=== PATIENT | male | born 1960 | race Caucasian/White ===

== ENCOUNTER 2025-05-26 09:46 | Outpatient (AMB) | payer BC, SELFPAY ==
--- NOTE | 2025-05-26 10:38 | A.OFFVIS_ITS ---
Intake Visit Reasons: after testing HPI Comments Details: He has a six-month history of a tremor in the right hand that is primarily noted when he is walking and gets quite prominent.? He can inhibit the tremor by?pressing his fingers against each other.? It does not affect his functional ability.? He does not notice it in bed or at rest or when he is doing things with the hand.? His father had some tremor when he was in his 80s. One near fall recently. He also complains of dizziness for the last 6 months described as a sense of loss of balance, as if he is on a boat and sometimes he feels the ground is uneven.? He has no vertigo and no presyncopal sensation.? This dizziness only occurs when he is standing or walking.? He has constant tinnitus in both years ever since a bout of meningitis 15 years ago for which he was admitted to [facility] for 15 days.? He had multiple lumbar punctures and MRIs at that time. He has multiple medical problems including a 15 year history of diabetes, hypertension, hyperlipidemia, congestive heart failure, obstructive sleep apnea on CPAP and a history of extensive substance abuse including alcohol and cocaine, who has been clean for the last 12 years. 05/07/25 MRI brain shows severe chronic cerebral microvacsular disease. 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 with chronic distal neuropathic changes on EMG [facility] Medical History (Updated 05/26/25 @ 10:54 by Marta Bashir MD) Substance abuse Alcohol abuse SEVTA (obstructive sleep apnea) CHF (congestive heart failure) High blood cholesterol Hypertension Diabetes mellitus Surgical History (Updated 05/25/25 @ 16:26 by Afia Mckeon MA) History of bariatric surgery Social History (Updated 05/25/25 @ 16:27 by Afia Mckeon MA) Alcohol intake: current Patient Tobacco Use Status: Former Tobacco user Use of substances other than those prescribed or required for medical reasons: Yes Substance Use Type: Crack/Cocaine Physical Exam Neuro Other: Neurological: Abnormal neurological findings:??Truncal ataxia, areflexia, distal sensory loss in hands and feet. Coarse Parkinsonian tremor in right hand only when walking.?Mental Status:??alert and oriented X 3,?Normal attention, orientation, memory and affect.?Cranial Nerves:??Pupils are equal, round and reactive to light. Fundoscopy shows normal disc bilaterally. External occular muscles are intact. Visual gamble are full, no ptosis. Face is symmetrical, no facial weakness or droop. Facial sensations are normal. Tongue protrudes in midline. Palate elevates symmetrically. Shoulder shrugging is normal..?Motor Examin ation:??Normal muscle tone, bulk and strength,?No atrophy or fasciculations,?No drift of the extended upper extremities,?Deep tendon reflexes are 2+?,?Plantars are flexor?.?Motor Strength:?Proximal Muscles (out of 5):5Distal Muscles (out of 5):5Neck Flexors (out of 5):5Neck Extensors (out of 5):5Deltoid (out of 5):5 Biceps (out of 5):5Triceps (out of 5):5Serratus Anterior (out of 5):5Wrist Extensors (out of 5):5APB (out of 5):5Finger Spread (out of 5):5Ileopsoas (out of 5):5Quadriceps (out of 5):5Hamstrings (out of 5):5Tibialis Anterior (out of 5):5Peronei (out of 5):5EDB (out of 5):5Gastrocnemius (out of 5):5Straight Leg Raising:??90 degrees.?Sensory Exam:??Distal sensory loss to PP. ?vibration and joint-position sensations?,?Rhomberg sign is present.?Coordination:??no ataxia,?no titubation,?abhyvq-[id number]-eyfx, vlxn-sgau-hcan test and rapid alternating movements were normal.?Gait Exam:??Within normal limits.?Cerebellar Signs:??[id number]-qvrq and ypyn-ua-fayd is normal,?no dysdiadochokinesia?.?Extrapyramidal System:??No tremor, rigidity with normal facial expressions,?No bradykinesia, no bradyphrenia. Normal arm swing and posture. No propulsion or retropulsion.?Speech:??Normal,?no dysphasia or dysarthria..? Mini Mental Status Exam: Level of Consciousness:??Alert.?Orientation:??Knows correct year, month, date, day and season,?Knows correct city, county and state. Knows correct location and floor.?Registration:??Able to register 3 objects.?Attention:??Serial 7's performed accurately.?Recall:??Able to recall 3 out of 3 objects.?Language:??Normal spontaneous speech, fluency, repetition,naming, comprehension, reading and writing.?Total Score:??30/30.? General Examination: GENERAL APPEARANCE:??normal,?in no acute distress.?HEAD:??normocephalic,?atraumatic.?EYES:??sclera non- icteric,?conjunctiva clear.?EARS:??auditory canal clear,?tympanic membrane intact, clear.?NOSE:??no lesions.?ORAL CAVITY:??gums normal,?mucosa moist,?no lesions.?THROAT:??clear.?NECK/THYROID:??no cervical lymphadenopathy,?thyroid normal,?neck supple, full range of motion,?no carotid bruit.?SKIN:??no rashes,?no significant birthmarks.?HEART:??S1, S2 normal,?no murmurs.?LUNGS:??clear anteriorly and posteriorly.?CHEST:??no gross rib deformity,?clear to auscultation.?BACK:??normal exam of spine.?EXTREMITIES:??no edema.?PERIPHERAL PULSES:??normal.?PSYCH:??alert, oriented,?cognitive function intact,?cooperative with exam.? Assessment & Plan Assessment & Plan (1) Peripheral neuropathy: Code(s): G62.9 - Polyneuropathy, unspecified Category: Medical (2) Cerebral microvascular disease: Code(s): I67.89 - Other cerebrovascular disease Category: Medical (3) SVETA on CPAP: Code(s): G47.33 - Obstructive sleep apnea (adult) (pediatric) Category: Medical Plan Control of Diabetes. B complex B 50 once a day. Exercise and walking for gait and balance Coding Level of Care Code Est Pt Level 4 (30076) Diagnoses Peripheral neuropathy G62.9 Cerebral microvascular disease I67.89 SVETA on CPAP G47.33
--- OUTSIDE RECORDS SUMMARY | 2025-05-26 10:38 | XMS_ITS | Clinical Summary ---
Author Organization 175 [facility] Address [address] [place] [address] Phone Care Team Providers Care At Risk Specialist Name Role Phone Shyanne Zambrano MD Primary Care Prov ider Allergies No known active allergies Medications lamoTRIgine (LaMICtal) 200 mg tablet Take 1 tablet (200 mg total) by mouth. 023 Active cholecalciferol (VITAMIN D-3) 50 mcg (2,000 unit) capsule Take 50 mcg by mouth. Active aspirin 81 mg chewable tablet Chew 1 tablet (81 mg total) 1 (one) time each day. Active naltrexone (DEPADE) 50 mg tablet Take 1 tablet (50 mg total) by mouth 1 (one) time each day with dinner. 023 Active omega 4-mcb-wye-fish oil (Fish OiL) 1,200 (144-216) mg capsule Take 1,200 mg by mouth. Active hydrOXYzine HCL (ATARAX) 25 mg tablet Take 1 tablet (25 mg total) by mouth. 023 Active buPROPion XL (WELLBUTRIN XL) 300 mg 24 hr tablet Take 1 tablet (300 mg total) by mouth 1 (one) time each day in the morning. 023 Active MULTIVITAMIN ORAL Take 1 tablet by mouth 1 (one) time each day. Active blood-glucose meter,[facility] See administration instructions. 021 Active busPIRone (BUSPAR) 5 mg tablet Take 1 Tablet by mouth 2 Times Daily. Active metoprolol succinate (TOPROL-XL) 100 mg 24 hr tablet Take 1 tablet (100 mg total) by mouth 1 (one) time each day. 90 tablet 1 Active DULoxetine (CYMBALTA) [address] capsule TAKE 1 CAPSULE BY MOUTH EVERY DAY 90 capsule 1 Active Dexcom G7 Sensor deviceIndicatio ns:Type 2 diabetes mellitus with other diabetic neurological complication ([facility] V24, [facility] V28) APPLY DIRECTED 3 each 5 Active fluticasone propionate (FLONASE) 50 mcg/actuation nasal spray Administer 1 spray into each nostril 1 (one) time each day. Active cyanocobalamin (VITAMIN B-12) 1,000 mcg tablet TAKE 1 TABLET BY MOUTH EVERY DAY 90 tablet Active lisinopriL (PRINIVIL,ZESTR IL) 10 mg tablet Take 1 tablet (10 mg total) by mouth 1 (one) time each day. 90 each 3 025 2025 Active meclizine (ANTIVERT) 25 mg tablet Take 1 tablet (25 mg total) by mouth 2 (two) times a day if needed for dizziness for up to 60 doses. 60 tablet Active amLODIPine (NORVASC) 5 mg tablet TAKE 1 TABLET BY MOUTH EVERY DAY 90 tablet 1 Active blood sugar diagnostic (OneTouch Verio test strips) test stripIndication s:Type 2 diabetes mellitus with other diabetic neurological complication ([facility] V24, [facility] V28) APPLY 1 STRIP TOPICALLY 2 TIMES DAILY. 200 strip 1 Active tirzepatide, weight loss, (Zepbound) 10 mg/0.5 mL injectionIndica tions:Over weight Inject 0.5 mL (10 mg total) under the skin every 7 (seven) days. 2 mL 1 025 2024 Active simvastatin (ZOCOR) 20 mg tablet TAKE 1 TABLET BY MOUTH EVERYDAY AT BEDTIME 90 tablet 2 Active simvastatin (ZOCOR) 20 mg tablet Take 1 tablet (20 mg total) by mouth at bedtime. 024 2024 Discontinued Active Problems Problem Noted Date Diagnosed Date Hx of colonic polyps 01/17/2024 History of cardiomyopathy in adulthood 4 Overview (01/17/2024): Coy Low MD 08/24/2020 Nonobstructive EF 35% in 2009, 55% in 2015, .55% in 2019 (cardiac cath- nonobstructive cad) Hx of colonoscopy 01/17/2024 Overview (01/17/2024): Hx of difficult colonoscopy 09/11/2018 Very difficult hepatic flexure. Needs adult colonoscope Personal history of colonic polyps 01/17/2024 Overview (08/26/2024): 4mm rectal polyp removed by biopsy procedure at colonoscopy 12/16/2009 Tubular adenoma Next colonoscopy indicated in 5 years IMO Regulatory Update 08/26/24 Bariatric surgery status 01/17/2024 Overview (01/17/2024): 08/16/2023 Ascending aorta dilation (CMS/HCC V24) 3 Overview (01/17/2024): Last Assessment & Plan: Given the fact that the patient had some discomfort radiating through to his back, will obtain a CT chest to gain an accurate measurement of his aorta size. His aorta size has not been changing dramatically on serial echocardiograms. Diverticulosis of colon 03/31/2022 Overview (01/17/2024): CN, 03/22/2022, Other cardiomyopathies (CMS/HCC V24, CMS/HCC V28 ) 07/08/2021 Overview (01/17/2024): Last Assessment & Plan: The patient has had recovery of his LVEF on medical therapy and with cessation of alcohol and drugs. He is commended for his efforts! He appears euvolemic on exam today. Continue ongoing medical therapy with lisinopril, metoprolol, amlodipine. LVH (left ventricular hypertrophy) 07/08/2021 Diabetes mellitus with cataract ([facility] V24, [facility] V28) 01/26/2021 Overview (01/17/2024): Cataract Nuclear Sclerosis bilateral. Obesity (BMI 30-39.9) 01/03/2021 Headache 07/08/2013 Overview (01/17/2024): Last Assessment & Plan: Take Fioricet for severe headaches, not daily. Controlled substance agreement. Coronary artery disease 03/21/2013 Overview (01/17/2024): Nonobstructive CAD in 2006 when presented with CHF. Nuclear stress test 12/31/2012; cath 03/2014 showed 30% and 40% stenotic lesions in LAD, minimal luminal irregularities elsewhere. Cardiac cath 2018 - nonobstructive CAD, EF 55% DM (diabetes mellitus), type 2 with neurological complications ([facility] V24, [facility] V28) 03/21/2013 Overview (01/17/2024): Podiatry note 01/14/2013/ Dr. Barron. Last Assessment & Plan: Increase Cymbalta to 60 mg daily for neuropathy. Diabetes labs today Assessment & Plan (02/19/2025 11:07 AM EDT): Assessment & Plan (12/16/2024 9:41 AM EST): Good control of diabetes, not on medications after bariatric surgery. Patient will continue with yearly Podiatric and Ophthomologic evaluation. Last A1c within normal limits. Patient will follow up in 6 months. Will check an A1C, CMP, lipid panel before his next visit. Orders: Comprehensive metabolic panel; Future Hemoglobin A1c; Future Lipid panel with reflex to direct LDL; Future Peripheral neuropathy 03/21/2013 Overview (01/17/2024): Follows with [facility] 3 mth basis. Major depressive disorder, recurrent (CMS/HCC V2 4) 01/16/2011 Assessment & Plan (02/19/2025 11:07 AM EDT): Care is ongoing Assessment & Plan (12/16/2024 9:41 AM EST): In remission, following with . Currently taking duloxetine, bupropion, buspirone. Essential hypertension 09/27/2009 Overview (01/17/2024): Last Assessment & Plan: Patient blood pressure is somewhat robust in office today but better controlled on chart review. Continue his current treatment plan with beta-linus, NOE inhibitor and calcium channel linus. Though we are interrupting his beta-linus for the purpose of his stress test, we can follow his blood pressure at his testing and adjust medical therapy at that point if necessary. Assessment & Plan (02/19/2025 11:07 AM EDT): Assessment & Plan (12/16/2024 9:41 AM EST): The patient's antihypertensive regimen is based on their underlying medical issues. At the time of this visit, the blood pressure is well controlled on lisinopril, metoprolol, and amlodipine. The patient is instructed to follow a low sodium diet and to follow up in 4 months. Hypercholesteremia 04/23/2009 Overview (01/17/2024): Last Assessment & Plan: LDL well controlled on current dose statin given concurrent use with calcium channel linus. Continue Assessment & Plan (02/19/2025 11:07 AM EDT): Assessment & Plan (12/16/2024 9:41 AM EST): Given the patients cardiac risk profile, the patient requires an LDL cholesterol of less than 70. We will continue simvastatin 20 mg a day. I have instructed the patient on the principles of a low cholesterol diet and the importance of regular exercise. Insomnia 04/03/2007 Obstructive sleep apnea hypopnea, severe 007 Overview (01/17/2024): to 08/11/2019. CPAP@ 14-20/Average 14.4/Max 14.8. 100% compliant with using the machine for >4 hours/day. Average use is 8.5 hours a night with AHI 4.5. Encounters Date Type Department Care Team Description 05/25/2025 Telephone Adult Medicine [address] [phone] Shyanne Zambrano MD Referral (Neurology Referral) 05/18/2025 Telephone Adult Medicine [address] [address] Shyanne Zambrano MD Referral (Ophthalmology Insurance Referral) 05/05/[address] [phone] Celine Rivera MA DME-cpap supplies 04/29/2025 9:45 AM EDT Office Visit Pulmon[address] [place] [phone] Fabienne Méndez NP Obstructive sleep apnea hypopnea, severe (Primary Dx); Insomnia, unspecified type; Essential hypertension; Recurrent major depressive disorder, in full remission (CMS/[facility] V24); Overweight (BMI 25.0-29.9) 04/21/2025 8:00 AM EDT Office Visit Bariatric Surgery - [place] [facility] [address] [place] [phone] Christian Ferreira MD Over weight (Primary Dx) 04/21/2025 Telephone Adult Medicine [address] [phone] Shyanne Zambrano MD Referral from Last 3 Months Immunizations Name Administration Dates Next Due Influenza Quadravalent, MDCK , 0.5ml, preservative free (Flucelvax) 6mo and older 12/11/2023,09/25/2022,09/20/2021,09/29,09/04/2018 Influenza Quadravalent, MDCK , 0.5ml, with preservative (Flucelvax) 6mo and older 08/21/2021,11/08/2017,11/08/2016 Influenza trivalent, with pr eservative (Fluzone; Afluria) 6mo and older 08/19/2020,10/24/2016,09/28/2015,09/02,08/22/2012,10/26/2011,10/17/2010 ,09/27/2009 Influenza, live, intranasal, trivalent (FluMist) 2yo to less than 50yo 08/11/2024 [employer] SARS-CoV-2 COVID-19, mRNA, LNP-S, preservative free 11/01/2021 Pneumococcal polysaccharide 23 valent (Pneumovax 23) 2yo and older 09/28/2015 Tdap Tetanus diptheria acell ular pertussis (Boostrix; Adacel) 7yo and older 04/10/2024,09/02/2013 Zoster recombinant (Shingrix ) 19yo and older 12/25/2020,10/28/2020 Surgical History Surgery Date Site/Laterality Comments COLONOSCOPY 03/29/2015 PROCEDURE: HISTORICAL COLONOSCOPY; COMMENT: 8 mm polyp at 25 cm: Tubular adenoma with focal high-grade dysplasia. COLONOSCOPY 12/16/2009 PROCEDURE: HISTORICAL COLONOSCOPY; COMMENT: small rectal polyp: Tubular adenoma. COLONOSCOPY 09/11/2018 PROCEDURE: HISTORICAL COLONOSCOPY; COMMENT: 14 mm sessile transverse colon polyp: Tubular adenoma. CARDIAC CATHETERIZATION 03/31/2014 PROCEDURE: HISTORICAL CARDIAC CATH CARDIAC CATHETERIZATION 01/24/2007 PROCEDURE: HISTORICAL CARDIAC CATH COLONOSCOPY 03/22/2022 PROCEDURE: HISTORICAL COLONOSCOPY; COMMENT: Repeat 5 years Medical History Medical History Date Comments Insomnia, unspecified 04/03/2007 DX:Insomni a, unspecified Hypertension 09/27/2009 DX:Hypertension Personal history of colonic polyps 12/16/2009 DX:Personal history of colonic polyps; COMMENT: 4-mm rectal polyp removed by biopsy procedure at colonoscopy 12/16/2009: Tubular adenoma. Next colonoscopy indicated in 5 years. Congestive heart failure (CM S/HCC V24, [facility] V28) 01/28/2007 DX:Congestive heart failure (HCC); COMMENT: IMO update History of colonoscopy 09/11/2018 DX:Histor y of colonoscopy; COMMENT: 09/11/2018: Very difficult hepatic flexure. Needs adult colonoscope. Non-ischemic cardiomyopathy (CMS/HCC V24, [facility] V28) 12/11/2008 DX:Non-ischemic cardiomyopat hy (HCC); COMMENT: EF 35% in 2008, 55% in 2014. 55% in 2018 (cardiac cath - nonobstructive CAD) DM (diabetes mellitus), type 2 with neurological complications ([facility] V24, [facility] V28) 03/21/2013 DX:DM (diabetes mellitus), t ype 2 with neurological complications ([facility]); COMMENT: Podiatry note 01/14/2013/ Dr. Barron. Peripheral neuropathy 03/21/2013 DX:Periphe ral neuropathy; COMMENT: Podiatry note 2012 Coronary artery disease 03/21/2013 DX:Coron remigio artery disease; COMMENT: Nonobstructive CAD in 2006 when presented with CHF. Nuclear stress test 12/31/2012; cath 03/2014 showed 30% and 40% stenotic lesions in LAD, minimal luminal irregularities elsewhere. Headache 07/08/2013 DX:Headache History of colonic polyps 12/16/2009 DX:His tory of colonic polyps Hypercholesteremia 04/23/2009 DX:Hyperchole steremia Major depressive disorder, r ecurrent ([facility] V24) 01/16/2011 DX:Major depressive disorder , recurrent (HCC) Obstructive sleep apnea hypo pnea, severe 01/28/2007 DX:Obstructive sleep apnea hypopnea, severe; COMMENT: to 08/11/2019. CPAP@ 14-20/Average 14.4/Max 14.8. 100% compliant with using the machine for >4 hours/day. Average use is 8.5 hours a night with AHI 4.5. Occipital neuralgia 07/25/2013 DX:Occipital neuralgia; COMMENT: S/p injection at Neuro Diabetes mellitus with catar act ([facility] V24, [facility] V28) 01/26/2021 DX:Diabetes mellitus with c ataract ([facility]); COMMENT: Cataract Nuclear Sclerosis bilateral. Insomnia 04/03/2007 DX:Insomnia Diverticulosis of colon 03/31/2022 DX:Diver ticulosis of colon; COMMENT: CN, 03/22/2022, Family History Medical History Relation Name Comments No Known Problems Aunt No Known Problems Brother Cataracts Father Brain Tumor No Known Problems Maternal Grandfather No Known Problems Maternal Grandmother Diabetes Mother CAD No Known Problems Other No Known Problems Paternal Grandfather No Known Problems Paternal Grandmother Colon cancer Sister No Known Problems Uncle Blindness Neg Hx Glaucoma Neg Hx Macular degeneration Neg Hx Strabismus Neg Hx Relation Name Status Comments Aunt Brother Father Alive brain tumor mi Maternal Grandfather Maternal Grandmother Mother Alive dm htn complica tions Other Paternal Grandfather Paternal Grandmother Sister Alive ??? Uncle Social History Tobacco Use Types Packs/Day Years Used Date Smoking Tobacco: Former Cigarettes 0.5 40 0 1972 - 08/18/2012 Smokeless Tobacco: Never Tobacco Cessation:Counseling Given: Not Answered Alcohol Use Standard Drinks/Week Comments No 0 (1 standard drink = 0.6 oz pur e alcohol) Housing Instability Answer Date Recorde d Are you worried that in the next 2 months you may not have stable housing? No 12/16/2024 Food Access & Nutrition Answer Date Rec orded Do you have access to a vari ety of food including fruits and vegetables? Yes 12/16/2024 Access to Healthcare Answer Date Record ed Within the last 3 months, francisco briceno many times did you visit the emergency department for your medical care? 0 12/16/2024 Health Literacy Answer Date Recorded How often do you need to hav e someone help you when you read instructions, pamphlets, or other written material from your doctor or pharmacy? Never 12/16/2024 Caregiver: How often do you need to have someone help you when you read instructions, pamphlets, or other written material from your doctor or pharmacy? Not on file 12/16/2024 Financial Risk Answer Date Recorded How hard is it for you to pa y for the very basics like food, housing, medical care, and air conditioning / heating? Somewhat hard 12/16/2024 Transportation Answer Date Recorded Has the lack of transportati on kept you from meetings, work, or from getting things needed for daily living? No Has the lack of transportati on kept you from medical appointments or from getting medications? No 12/16/2024 Social Isolation Answer Date Recorded How often do you feel lonely or isolated from th ose around you? Never 12/16/2024 Food Risk Answer Date Recorded Within the past 12 months we worried whether our food would run out before we got money to buy more. Never true 12/16/2024 Within the past 12 months th e food we bought just didn't last and we didn't have money to get more. Never true 12/16/2024 Dependent Care Answer Date Recorded Do you need help finding or paying for care for your loved ones. For example, child day care center worker or elderly care for an older adult? No 12/16/2024 Education Answer Date Recorded Do you think completing more education or training, like finishing a GED, going to college, or learning a trade, would be helpful for you? No 12/16/2024 Employment and Income Answer Date Recor ded During the last four weeks, have you been actively looking for work? No 12/16/2024 Living Situation Answer Date Recorded What is your living situation? 0 12/16/2024 Sex and Gender Information Value Date Recorded Sex Assigned at Male 09/30/2024 7:49 AM EST Legal Sex Male 3:52 PM EST Gender Identity Male 09/30/2024 7:49 AM EST Sexual Orientation Straight 09/30/2024 7: 49 AM EST Obstetrics History Last Filed Vital Signs Vital Sign Reading Time Taken Comments Blood Pressure 112/64 04/29/2025 9:09 AM EDT Pulse 55 04/29/2025 9:09 AM EDT Temperature 36.4 C (97.5 F) 04/29/2025 9:09 AM EDT Respiratory Rate 14 04/29/2025 9:09 AM EDT Oxygen Saturation 97% 04/29/2025 9:09 AM EDT Inhaled Oxygen Concentration - - Weight 93.9 kg (207 lb) 04/29/2025 9:09 AM EDT Height 182.9 cm (6') 04/29/2025 9:09 AM EDT Body Mass Index 28.07 04/29/2025 9:09 AM EDT Plan of Treatment Upcoming Encounters Date Type Department Care Team (Late st Contact Info) Description 06/15/2025 9:45 AM EDT Office Visit Adult Medicine [address] [phone] Shyanne Zambrano MD [address] [place] [address] 06/30/2025 9:00 AM EDT Office Visit [address] [phone] Joana Clark PA [address] [place] [address] 2025 8:30 AM EDT Office Visit Pulmonolgy - [place] [address] [phone] Fabienne Méndez NP [address] [address] 10/07/2025 8:00 AM EST Office Visit Endocrinology [address] [phone] Beronica Meeks PA [address] [place] [address] 10/27/2025 8:45 AM EST Office Visit Bariatric Surgery - [place] [address] [phone] Christian Ferreira MD [address] [address] Health Maintenance Due Date Last Done Comments Pneumococcal Vaccine: 50+ Years (2 of 2 - PCV) 09/28/2016 09/28/2015 Pneumococcal Vaccine: Pediatrics (0 to 5 Years) and At-Risk Patients (6 to 64 Years) (2 of 2 - PCV) 09/28/2016 09/28/2015 Lung Cancer Screening (Low Dose CT) 11/02/2022 Medicare Annual Wellness Visit 11/02/2022 COVID-19 Vaccine ( - 2023- season) 2024 11/01/2021, 03/03/2021, 02/10/2021 Diabetes: Annual Urine Albumin-Creatinine Ratio (uACR) 12/11/2024 12/11/2023 Diabetes: Annual Retina Eye Exam 06/10/2025 06/10/2024 Diabetes: Blood Sugar Control Test (HGBA1C) 06/15/2025 12/16/2024, 04/10/2024, 04/10/2024 Influenza Vaccine (#1) 2025 , 12/11/2023, 09/25/2022, Additional history exists Diabetes: Annual Foot Exam 08/11/2025 08/11/2024 Diabetes: Annual GFR (Glomerular Filtration Rate) 12/16/2025 12/16/2024, 08/11/2024, 08/11/2024, Additional history exists Falls Risk Assessment 12/16/2025 12/16/2024 Hypertension/CHF/CAD Annual BMP Blood Test 12/16/2025 12/16/2024, 08/11/2024, 08/11/2024, Additional history exists Social Influencers of Health Screening 12/16/2025 12/16/2024 Depression Screening 01/12/2026 01/12/2025, 12/16/19 25 Colorectal Cancer Screening: Colonoscopy 03/02/2027 03/02/2022 Cholesterol Screening (Lipid Panel) 12/16/2029 12/16/2024, 12/11/2023 DTaP,Tdap,and Td Vaccines (3 - Td or Tdap) 04/10/2034 04/10/2024, 09/02/2013 RSV Immunization Adult Patients (1 - 1-dose 75+ series) 2034 Abdominal Aortic Aneurysm (AAA) Screen Completed 07/30/2009 Hepatitis C Screening Completed 04/27/2014 Zoster Vaccines Completed 12/25/2020, 10/28/2020 HIB Vaccines Aged Out No longer eligi ble based on patient's age to complete this topic HPV Vaccines Aged Out No longer eligi ble based on patient's age to complete this topic Hepatitis A Vaccines Aged Out No long er eligible based on patient's age to complete this topic Hepatitis B Vaccines Aged Out No long er eligible based on patient's age to complete this topic IPV Vaccines Aged Out No longer eligi ble based on patient's age to complete this topic MMR Vaccines Aged Out No longer eligi ble based on patient's age to complete this topic Meningococcal ACWY Vaccine Aged Out N o longer eligible based on patient's age to complete this topic Meningococcal B Vaccine Aged Out No l onger eligible based on patient's age to complete this topic RSV Immunization Patients Under 20 months Aged Out No longer eligible based on patient's age to complete this topic Varicella Vaccines Aged Out No longer eligible based on patient's age to complete this topic Procedures Procedure Name Priority Date/Time Associated Diagnosis Comments COMPREHENSIVE METABOLIC PANEL Routine 12/16/2024 9:41 AM EST DM (diabetes mellitus), type 2 with neurological complications (CMS/HCC V24, CMS/HCC V28) HEMOGLOBIN A1C Routine 12/16/2024 9:41 AM EST DM (diabetes mellitus), type 2 with neurological complications (CMS/HCC V24, CMS/HCC V28) LIPID PANEL WITH REFLEX TO DIRECT LDL Routine 12/16/2024 9:41 AM EST DM (diabetes mellitus), type 2 with neurological complications (CMS/HCC V24, CMS/HCC V28) DIABETES FOOT EXAM Routine 08/11/2024 DIABETES EYE EXAM Routine 06/10/2024 URINE ALBUMIN CREATININE RATIO Routine 12/11/2023 COLONOSCOPY Routine 03/02/2022 HEPATITIS C SCREENING Routine 04/27/2014 ABDOMINAL AORTIC ANEURYSM SCRREN Routine 07/30/2009 from Last 3 Months or Most Recently Relevant to Health Maintenance Results * Lipid panel with reflex to direct LDL (12/16/2024 9:41 AM EST) Cholesterol 117 0 - 200 mg/dL LAB CHEMISTRY METHOD 12/16/2024 12:17 PM [facility] Triglycerides 35 0 - 150 mg/dL LAB CHEMISTRY METHOD 12/16/2024 12:17 PM EST [facility] HDL 58 >=40 mg/dL LAB CHEMISTRY METHOD 12/16/2024 12:17 PM [facility] LDL Calculated 52 0 - 100 mg/dL LAB CHEMISTRY METHOD 12/16/2024 12:17 PM [facility] VLDL Cholesterol Eloy 7 mg/dL LAB CHEMISTRY METHOD 12/16/2024 12:17 PM [facility] Non HDL Chol. (LDL+VLDL) 59 <145 mg/dL LAB CHEMISTRY METHOD 12/16/2024 12:17 PM [facility] Chol/HDL Ratio 2.0 0.0 - 4.4 LAB CHEMISTRY METHOD 12/16/2024 12:17 PM [facility] Blood Venous blood specimen / Unknown Venipuncture / Unknown 12/16/2024 9:41 AM EST 12/16/2024 9:41 AM EST us Shyanne Zambrano MD LAB BLOOD ORDERABL ES Final Result [facility] [address] [place] [address], * Hemoglobin A1c (12/16/2024 9:41 AM EST) Hemoglobin A1C 5.2 <6.5 % LAB CHEMISTRY METHOD 12/16/2024 2:11 PM EST [facility] Mean Bld Glu Estim. 103 mg/dL LAB CHEMISTRY METHOD 12/16/2024 2:11 PM [facility] Blood Venous blood specimen / Unknown Venipuncture / Unknown 12/16/2024 9:41 AM EST 12/16/2024 9:41 AM EST us Shyanne Zambrano MD LAB BLOOD ORDERABL ES Final Result [facility] [address] [place] [address], * (ABNORMAL) Comprehensive metabolic panel (12/16/2024 9:41 AM EST) Sodium 141 133 - 145 mmol/L LAB CHEMISTRY METHOD 12/16/2024 12:17 PM [facility] Potassium 4.6 3.5 - 5.5 mmol/L LAB CHEMISTRY METHOD 12/16/2024 12:17 PM [facility] Chloride 107 96 - 110 mmol/L LAB CHEMISTRY METHOD 12/16/2024 12:17 PM [facility] CO2 32 21 - 32 mmol/L LAB CHEMISTRY METHOD 12/16/2024 12:17 PM [facility] Anion Gap 2(L) 3 - 11 LAB CHEMISTRY METHOD 12/16/2024 12:17 PM [facility] Glucose 96 70 - 100 mg/dL LAB CHEMISTRY METHOD 12/16/2024 12:17 PM [facility] BUN 23 5 - 25 mg/dL LAB CHEMISTRY METHOD 12/16/2024 12:17 PM [facility] Creatinine 0.91 0.70 - 1.30 mg/dL LAB CHEMISTRY METHOD 12/16/2024 12:17 PM [facility] eGFR 94 >=60 mL/min/1. 73m2 LAB CHEMISTRY METHOD 12/16/2024 12:17 PM [facility] Comment:Calculation based on the Chronic Kidney Disease Epidemiology Collaboration (CKD-EPI) equation refit without adjustment for race. BUN/Creatinine Ratio 25.3 LAB CHEMISTRY METHOD 12/16/2024 12:17 PM [facility] Calcium 9.3 8.5 - 10.5 mg/dL LAB CHEMISTRY METHOD 12/16/2024 12:17 PM [facility] AST (SGOT) 35 10 - 42 unit/L LAB CHEMISTRY METHOD 12/16/2024 12:17 PM [facility] ALT (SGPT) 83(H) 10 - 60 unit/L LAB CHEMISTRY METHOD 12/16/2024 12:17 PM [facility] Alkaline Phosphatase 63 42 - 121 unit/L LAB CHEMISTRY METHOD 12/16/2024 12:17 PM [facility] Total Protein 6.3 6.0 - 8.0 g/dL LAB CHEMISTRY METHOD 12/16/2024 12:17 PM [facility] Albumin 3.9 3.2 - 5.0 g/dL LAB CHEMISTRY METHOD 12/16/2024 12:17 PM [facility] Total Bilirubin 0.5 0.0 - 1.4 mg/dL LAB CHEMISTRY METHOD 12/16/2024 12:17 PM [facility] Blood Venous blood specimen / Unknown Venipuncture / Unknown 12/16/2024 9:41 AM EST 12/16/2024 9:41 AM EST Shyanne Zambrano MD LAB BLOOD ORDERABL ES Final Result [facility] [address] [place] [address], [place] [phone] * Diabetes Foot Exam (08/11/2024) Pathologist [facility] Diabetes: Annual Foot Exam Abstracted Historical Provider HEALTH MAINTENANCE Final Result * Diabetes Eye Exam (06/10/2024) [facility] Diabetes: Annual Retina Eye Exam Abstracted Historical Provider HEALTH MAINTENANCE Final Result * Urine Albumin Creatinine Ratio (12/11/2023) Urine Albumin Creatinine Ratio Abstracted Historical Provider HEALTH MAINTENANCE Final Result * Colonoscopy (03/02/2022) Colonoscopy No interpretation with ,abstracted Anatomical Region Laterality Modality Other Historical Provider HEALTH MAINTENANCE Final Result * Hepatitis C Screening (04/27/2014) Pathologist [facility] Hepatitis C Screening Abstracted Historical Provider HEALTH MAINTENANCE Final Result * Abdominal Aortic Aneurysm Screen (07/30/2009) Pathologist [facility] Abdominal Aortic Aneurysm (AAA) Screening Abstracted Anatomical Region Laterality Modality Other Historical Provider HEALTH MAINTENANCE Final Result from Last 3 Months or Most Recently Relevant to Health Maintenance Insurance MEDICARE Advance Directives Documents on File Type Date Recorded Patient Brass Buffer Expl anation Health Care Decision (hx) 08/06/2023 [place] SALAZAR DIRECTIVE Care Teams At Risk Specialist Relationship Specialty Start Date End Date Shyanne Zambrano MD [address] [place] [id number] PCP - General Internal Medicine 10/13/24
--- OUTSIDE RECORDS SUMMARY | 2025-05-26 10:38 | XMS_ITS | Clinical Summary ---
Author Organization [facility] Address [address] [place] [address] Care Team Providers Care [employer] Product Consultant Name Role Phone Maranda Gillespie MD Primary Care Provider [phone] Allergies No known active allergies Medications Medication Sig Dispensed Refills Start Date End Date Status amLODIPine (NORVASC) tablet 5 mg Take 5 mg by mouth. 0 01/16/2019 Active clonazePAM (KlonoPIN) 1 MG tablet TAKE 1 TABLET BY MOUTH ONCE DAILY NEEDED FOR ANXIETY 0 12/01/2019 Active DULoxetine (CYMBALTA) DR capsule 60 mg Take 60 mg by mouth. 0 07/08/2019 Active lisinopril (PRINIVIL,ZESTRIL) tablet 10 mg Take 10 mg by mouth. 0 07/07/2019 Active metFORMIN (GLUCOPHAGE) tablet 1000 mg Take 1,000 mg by mouth. 0 12/01/2019 Active [place]-3 Fatty Acids (FISH OIL) 1200 MG CAPS Take by mouth. 0 Active meloxicam (MOBIC) 7.5 MG tablet Take 1 tablet (7.5 mg total) by mouth daily. 30 tablet 1 12/29/2019 Active Active Problems No known active problems Family History Medical History Relation Name Comments Cancer Father Diabetes Mother Hyperlipidemia Mother Relation Name Status Comments Father Mother Social History Tobacco Use Types Packs/Day Years Used Date Smoking Tobacco: Former Cigarettes 2 Q uit: 2011 Smokeless Tobacco: Never Alcohol Use Standard Drinks/Week Comments No 0 (1 standard drink = 0.6 oz pur e alcohol) Sex and Gender Information Value Date Recorded Sex Assigned at Not on file Gender Identity Not on file Sexual Orientation Not on file Job Start Date Occupation Industry Not on file Not on file Not on file Last Filed Vital Signs Vital Sign Reading Time Taken Comments Blood Pressure - - Pulse - - Temperature - - Respiratory Rate - - Oxygen Saturation - - Inhaled Oxygen Concentration - - Weight 152 kg (335 lb) 12/29/2019 9:20 AM EST Height 182.9 cm (6') 12/29/2019 9:20 AM EST Body Mass Index 45.43 12/29/2019 9:20 AM EST Plan of Treatment Health Maintenance Due Date Last Done Comments Hepatitis C Screening 1960 COVID-19 Vaccine (#1) 02/01/1960 Depression Screening 1971 BMI Counseling 1977 Preventative Health Evaluation 1977 Colon Cancer Screening (Colonoscopy) 2004 Shingrix-Zoster Vaccine (1 of 2) 2009 Pneumococcal Vaccine (2 of 2 - PCV) 09/28/2016 09/28/2015 Pneumococcal Vaccine (2 of 2 - PCV) 09/28/2016 09/28/2015 DTap / Tdap / Td (2 - Td or Tdap) 09/02/2023 09/02/2013 Fall Risk Assessment 2024 Influenza Vaccine (Season Ended) 2025 09/29/2019, 09/04/2018, 11/08/2017, Additional history exists RSV Adult > 60+ Yrs or (1 - 1-dose 75+ series) 2034 Hepatitis B Vaccines Aged Out No long er eligible based on patient's age to complete this topic RSV Ped < 20 months Aged Out No longe r eligible based on patient's age to complete this topic Care Teams [employer] Product Consultant Relationship Specialty Start Date End Date Maranda Gillespie MD PCP - General Internal Medicine 12/17/19
--- OUTSIDE RECORDS SUMMARY | 2025-05-26 10:38 | XMS_ITS | Data Portability ---
Author Organization [place] - [facility], Allergy Address [address] [address] Care Team Providers Care Inside Barrel Lathe Operator Name Role Phone PADMA TERRAZAS Referring Provider Assessment Encounter Date Assessment Date Assessment LastModified by Organization Details LastModified Time 12/22/2024 12/22/2024 Patient presents with imbalance resulting in falls. Physical exam notable for slow and imprecise alternating movements and frequent misses on [id number], as well as a step out on Romberg. We discussed the many factors that mediate human balance. Reviewed I feel this is a neurologic issue rather than a vestibular problem, partially attributable to his lower extremity neuropathy. Patient declined referral to neurologist and will discuss with PCP. We will obtain MRI of the brain and internal auditory canal and patient will be called with results. Discussed there may be a metabolic and/or medication-related component to this issue as well, and he will discuss this with his PCP as well. Recommend he take his blood pressure and blood sugar during an episode and bring that information to his appointment. He declined a referral for physical or vestibular therapy. Patient complains of hearing loss. Otologic exam unrevealing. Audiometric testing obtained today and reviewed with patient demonstrates bilateral neurosensory hearing loss, affecting the frequencies of human speech, with resultant decreased speech discrimination. Reviewed with patient hearing loss is amenable to hearing aids; recommend binaural amplification. Patient would like to call his insurance company and check benefits before scheduling audiology consultation. Recommend annual audiometric testing, sooner with perceived change in hearing. Tympanogram demonstrates type C tracing bilaterally. Reviewed pathophysiology of Eustachian tube dysfunction on diagram and patient/parent understands. Recommend trial of intranasal steroid spray; risks, rationale, and crossed-hand application technique reviewed and all questions were answered. Recommend follow up in 8 weeks, sooner with concerns. Reviewed that ultimately it may be necessary to place a ventilation tube in the tympanic membrane. All questions were answered. For the nasal bone fracture he sustained during a fall a few months ago, he has an appointment pending with plastic surgery. [email or web address] Not available 12/22/2024 16:29:01 12/22/2024 12/22/2024 Recommendations: Follow up with referring provider. Amplification, pending medical clearance. [email or web address] Not available 12/22/2024 13:51:27 04/28/2025 04/28/2025 64-year-old male presents for reevaluation. On examination he does have some horizontal nystagmus both left and right which is fatigable. He also has some fasciculation of the tongue at rest. It would certainly seem that this represents a neurologic process rather than a neurologic process. I have strongly recommended that he continue to follow with the neurologist. In the meantime, I have recommended vestibular rehabilitation to help strengthen his accessory support muscles and evaluate for ophthalmologic neuropathy. Could consider referral to neurologic park services specialist if appropriate. Would not recommend any intervention from ENT standpoint. All questions were answered. [email or web address] Not available 04/28/2025 10:05:12 Plan of Treatment Reminders Order Date Submit Date Provider Last Modified By Organization Details Last Modified Time Details Appointments None recorded. Lab None recorded. Referral None recorded. Procedures None recorded. Surgeries None recorded. Imaging MRI, brain + internal auditory canal, w/wo contrast 2024 025 [email or web address] [facility] ([facility]), [address] [place], [address], 5 15:06:33 Medication Orders fluticasone propionate 50 mcg/actuati on nasal spray,suspe nsion 2024 025 [facility]armacy #[id number], [address] [facility], [place], [address], 14:38:38 Patient TargetsNo targets recorded. Patient InstructionsNo instructions recorded. Reason for Referral None Reported. Results Created Date Observation Date Name Description Value Unit Range Abnormal Flag Note LastModifiedBy Organization Detail LastModifiedTime 12/23/19 audio gram No observ ation record ed. BARCODE Not Available 2024 09:52:09 01/07/20 25 01/05/2025 MRI, brain + inter nal audit ory canal , w/wo contr ast No observ ation record ed. [email or web address] [facility] ([facility]) [address] [facility] [place], [address], 01/08/2025 15:23:14 Result Notes None recorded. Problems Name Problem SNOMED Code Status Onset Date Resolution Date Notes Provider Name and Address Organization Details Recorded Time Sensorineur al hearing loss of bilateral ears 541682424 Active 2024 JESSI IYER, AUD [address] [facility] [place], [place], [address], [place] - [facility] 13:51:17 Dizziness and giddiness 550341928 Active 2024 MODE ARNDT PA-C [address] [facility] [place], [place], [address], [place] - [facility] 14:36:02 Bilateral disorder of Eustachian tubes 0325452556413 107 Active 2024 MODE ARNDT, PA-C [address] [facility] [place], [place], [address], [place] [facility] 14:37:46 Closed fracture of nasal bones 05946329 Active 2024 MODE ARNDT, PA-C [address] [facility] [place], [place], [address], [place] - [facility] 16:28:11 Problem Notes None recorded. Procedures Surgical History Date Name Laterality Status Provider Name and Address Organization Details Recorded Time 12/22/2024 Comp Audio with Tymps - 17623 & 28329 completed JESSI IYER, AUD [address] [facility] [place],[address], [place], [address], [place] - [facility] 12/22/2024 13:51:43 Imaging Results None recorded. Procedure Notes None recorded. Medical Equipment None Reported. Allergies No known drug allergies Medications Name Sig Start Date Stop Date Status Note LastModified by Organization Details LastModified Time quetiapine 25 mg tablet TAKE 1 TABLET BY MOUTH TWICE A DAY NEEDED active Not Available Not Available No t Available buspirone 5 mg tablet TAKE 1 TABLET BY MOUTH TWICE A DAY active Not Available Not Available No t Available lamotrigine 200 mg tablet TAKE 1 TABLET BY MOUTH EVERYDAY AT BEDTIME active Not Available Not Available No t Available naltrexone 50 mg tablet TAKE 1 TABLET BY MOUTH EVERY DAY WITH DINNER active Not Available Not Available No t Available metoprolol succinate ER 100 mg tablet,exte nded release 24 hr TAKE 1 TABLET BY MOUTH 1 TIME EACH DAY. active Not Available Not Available No t Available clobetasol 0.05 % topical cream APPLY TWICE DAILY TO RASH UP TO 2 WEEKS BREAK FOR ONE WEEK THEN REPEAT NEEDED 04/28 completed Not Available Not Available Not Available cyanocobala min (vit B-12) 1,000 mcg tablet TAKE 1 TABLET BY MOUTH EVERY DAY active Not Available Not Available No t Available hydroxyzine HCl 50 mg tablet TAKE 1 TABLET BY MOUTH TWICE A DAY NEEDED active Not Available Not Available No t Available amlodipine 5 mg tablet TAKE 1 TABLET BY MOUTH EVERY DAY active Not Available Not Available No t Available lorazepam 2 mg tablet TAKE 1 TABLET 2 HRS BEFORE MRI. MAY REPEAT AT TIME OF TEST ORALLY DIRECTED 1 DAYS 04/28 completed Not Available Not Available Not Available meclizine 25 mg tablet TAKE 1 TABLET (25 MG TOTAL) BY MOUTH 2 (TWO) TIMES A DAY IF NEEDED FOR DIZZINESS FOR UP TO 60 DOSES. 04/28 completed Not Available Not Available Not Available simvastatin 20 mg tablet TAKE 1 TABLET BY MOUTH EVERYDAY AT BEDTIME active Not Available Not Available No t Available lisinopril 10 mg tablet TAKE 1 TABLET BY MOUTH 1 TIME EACH DAY. 04/28 completed Not Available Not Available Not Available ursodiol 300 mg capsule TAKE 2 CAPSULES BY MOUTH DAILY FOR 180 DAYS. 04/28 completed Not Available Not Available Not Available aspirin 81 mg tablet Take 1 tablet every day by oral route. active Not Available Not Available No t Available fluticasone propionate 50 mcg/actuati on nasal spray,suspe nsion SPRAY 2 SPRAYS INTRANASA LLY EVERY DAY IN THE MORNING active Not Available Not Available No t Available lamotrigine 100 mg tablet TAKE 1 TABLET (100 MG) BY MOUTH AFTER BREAKFAST AND 2 TABLETS AT BEDTIME 04/28 completed Not Available Not Available Not Available bupropion HCl XL 300 mg 24 hr tablet, extended release TAKE 1 TABLET BY MOUTH EVERY DAY IN THE MORNING active Not Available Not Available No t Available duloxetine 60 mg capsule,del ayed release TAKE 2 CAPSULES (120 MG) BY MOUTH AFTER BREAKFAST . active Not Available Not Available No t Available OneTouch Verio test strips APPLY 1 STRIP TOPICALLY 2 TIMES DAILY. active Not Available Not Available No t Available Mounjaro 7.5 mg/0.5 mL subcutaneou s pen injector INJECT 0.5 ML UNDER THE SKIN EVERY 7 DAYS FOR 28 DAYS. active Not Available Not Available No t Available Mounjaro 5 mg/0.5 mL subcutaneou s pen injector INJECT 0.5 ML (5 MG TOTAL) UNDER THE SKIN EVERY 7 DAYS 04/28 completed Not Available Not Available Not Available Mounjaro 2.5 mg/0.5 mL subcutaneou s pen injector INJECT 2.5 MG INTO THE SKIN ONCE A WEEK FOR 4 DOSES. 04/28 completed Not Available Not Available Not Available Dexcom G7 Sensor device APPLY DIRECTED active Not Available Not Available No t Available Vitals Date Recorded Body height Body mass index (BMI) Body weight Provider Name and Address Organization Details Last Updated DateTime 12/22/2024 182.88 cm 28.8 kg/m2 28018.58 g Amanda Alfaro [place] [facility] 12/22/2024 13:32:08 Date Recorded Body height Body mass index (BMI) Body weight Provider Name and Address Organization Details Last Updated DateTime 04/28/2025 182.88 cm 27.1 kg/m2 71818.47 g Amanda Alfaro [place] - [facility] 04/28/2025 09:41:04 Social History Question Answer Notes LastModified by Organizat ion Details LastModified Time Tobacco Smoking Status Former Smoker Amanda love [place] - [facility] 04/28/2025 09:41:14 What Type Of Hydrator Operator Do You Use? None Information not available 04/28/2025 Which Illicit Or Recreational Drugs Have You Used? Cocaine, Crack Information not available 04/28/2025 When Did You Quit Smoking? 11-15yearss incbisistcecelia thomas Information not available 04/28/2025 How Many Years Have You Used Illicit Or Recreational Drugs? 20 Information not available 04/28/2025 What Is Your Current Pack Years? 30ormorepaharpal melgar Information not available 04/28/2025 Do You Have Any Pets? Yes Information not available 04/28/2025 At What Age Did You Start Smoking Tobacco? 14 Information not available 04/28/2025 Are You Passively Exposed To Smoke? No Information no t available 04/28/2025 Are There Any Smokers In Your House? No Information not available 04/28/2025 How Much Tobacco Do You Smoke? 2 PPD Information not available 04/28/2025 How Many Years Have You Smoked Tobacco? 40 Information not available 04/28/2025 Have You Used IV Drugs? No Information not available 04/28/2025 Sex: Unknown Functional Status Question Answer Note LastModified by Organizat ion Details LastModified Time Do you use any illicit or recreational drugs? Yes Information not available 04/28/2025 Do you or have you ever used any other forms of tobacco or nicotine? No Information not available 04/28/2025 What is your level of alcohol consumption? None Information not available 04/28/2025 What type of noise exposure are you exposed to? Other Information not available 04/28/2025 Mental Status None recorded. Family History Nothing Reported. Medical History Condition Response Allergies/Hayfever N Heart Problems Y Anxiety Y Tonsil Infections N Emphysema N Migraines N Thyroid Problems N Glaucoma N Depression Y COPD N Developmental Delay N Nasal or Sinus Problems Y Anemia N Immune System Disorder N Anesthesia Complications N Heart Attack (PR) N Other Skin Condition N Diabetes Y Rhinitis N Bleeding Disorder N Food Allergy N Arthritis N Hearing Loss N Hyperlipidemia N Cancer N Stroke N Dementia N Nasal polyps N Asthma N High Cholesterol N Sleep Disorder Y GERD/Reflux N Liver Disease N Headaches N Fibromyalgia N Hypertension N Speech Delay N Kidney Disease N Past Encounters Encounter ID Performer Location Encounter Start Date Encounter Closed Date Diagnosis/Indication Diagnosis SNOMED-CT Code Diagnosis ICD10 Code Diagnosis Note [id number] MODE ARNDT PA-C [facility] [address] [address] 12/22/2024 13:10:30 12/22/2024 14:43:39 Sensorineural hearing loss of bilateral ears 608860881 H90.3 Dizziness and giddiness 268997923 R42 Bilateral disorder of Eustachian tubes 7431409374 609103 H69.93 Closed fra cture of nasal bones 42569322 S02.2XXA [id number] YARIEL LYONS [facility] [address] [address] 12/22/2024 13:42:05 12/23/2024 07:11:36 Sensorineural hearing loss of bilateral ears 652158463 H90.3 Audiologic al evaluation results:Ri ght ear:Mild to moderately -severe sensorineu ral hearing loss with excellent word recognitio n.Left ear:Mild to moderately -severe sensorineu ral hearing loss with excellent word recognitio n.Tympanom etry:Right Ear:Type C, shallow & roundedLef t Ear:Type C, shallow & rounded [id number] NHI CLAIRE PA-C [facility] [address] [address] 04/28/2025 09:32:41 04/28/2025 10:00:50 Dizziness and giddiness 312681088 R42 Health Concerns Section Related Observation LastModified by Organization Detai ls LastModified Time None Recorded Concern Status LastModified by Organization Details LastModified Time None Recorded Advance Directives Directive None Recorded Payers Insurance Date Sequence Insurance Name Policy Number Policy Garibay Covered Member ID Garibay Member ID Guarantor Name 04/26/2025 1 [place]IC[place] B-[place]: [employer] Viktor Hernandez Jr [id number] Viktor Hernandez Jr 04/26/2025 2 [facility] [id number] EvonneAlexandre Mattson Mary [id number] Viktor Justin Hernandez Notes Date Note Type Note Provider Name and Address Organization Details Recorded Time 12/22/2024 text/html Audiological Evaluation HPIReported bypatient.Hearing loss perceived:hearing loss in both ears: right ear worse Tinnitus reported:both ears Balance symptoms reported:dizziness Aggravating factors:random in occurrence YARIEL LYONS [address] [facility],[address], [address], [place] - [facility] 12/22/2024 13:52:29 12/22/2024 text/html 64-year-old male with history of hypertension and well-controlled diabetes presents for evaluation of disequilibrium which patient defines as sensation of off-balance. First episode occurred years ago and has worsened since then, becoming more frequent and more intense. Episodes now occur several times per day and consist of imbalance. Has fallen due to this. Episodes persist for a few seconds. They are generally triggered by nothing he can identify and worsened by going up and down stairs or bending over. He has found nothing that improves or aborts an episode. There is no confusion, slurred speech, facial or extremity weakness, numbness, paralysis, headache, chest pain, heart palpitations, vision change, loss of visual field, photophobia, phonophobia, nausea, vomiting, change in hearing, tinnitus, aural pressure, nor otalgia. He does have aural pressure at times, apart from these episodes. He wears prescription glasses but has no other major vision problems. He wears his prescription glasses all the time. He has neuropathy in the feet. No lower extremity joint issues. No personal or family history of migraine, personal or family history of aneurysm or other vascular anomaly. Patient has discussed this with PCP, who did not present a tentative diagnosis. He has undergone CT scan of the brain after his first fall - at [facility] 3-4 months ago. MODE ARNDT PA-C [address] [facility],[place] [address], [place], [address], [place] - [facility] 12/22/2024 16:29:24 04/28/2025 text/html 64-year-old male presents for reevaluation. Previously evaluated by [facility] for disequilibrium. He continues to have imbalance which has caused him to fall several times. The disequilibrium was thought to be neurologic in nature. He has since seen a neurologist who has ordered an MRI. MRI has been completed and he is scheduled for follow-up with the neurologist in the next few weeks. He does have neuropathy in his feet and some kind of ophthalmologic neuropathy as well. NHI CLAIRE PA-C [address] [place] [address], [place], [address], [facility] - [facility] 04/28/2025 10:05:34
--- OUTSIDE RECORDS SUMMARY | 2025-05-26 10:38 | XMS_ITS | Patient Health Record ---
Author Organization [facility] Address [address] [facility] [address] [place] [address] Care Team Providers Care Bus Driver Name Role Phone Deborah Jaimes Primary Care Provider Unavailab le Allergies No Known Allergies Reason For Referral No Information Medications Medication SIG (Take, Route, Frequency, Duration) Notes Start Date End Date Status Naproxen 500 MG 1 tablet with food o r milk as needed Orally Twice a day Active metFORMIN HCl 1000 MG 1 tablet Orally On ce a day Active Multivitamin - 1 tablet Orally Once a day Active DULoxetine HCl 60 MG 1 capsule Orally On ce a day Active Insulin Glargine 100 UNIT/ML as directed Subcutaneous Active Dulaglutide 0.75 MG/0.5ML inject 0.75mg into the skin every 7 days Subcutaneous as directed Active buPROPion HCl ER (SR) 150 MG 1 tablet in the morning Orally Once a day Active Lisinopril 10 MG 1 tablet Orally Once a day Active Simvastatin 20 MG 1 tablet in the even ing Orally Once a day Active Metoprolol Succinate ER 25 MG 1 tablet Orally Once a day Active Fish Oil 1200 MG 1 capsule Orally Onc e a day Active clonazePAM 1 MG 1 tablet Orally Once a day as needed for anxiety Active Cholecalciferol Acti ve Problems Problem Type SNOMED Code ICD Code Onset Dates Problem Status W/U Status Risk Notes Problem [id number] Controlled type 2 diabetes mellitus with diabetic polyneuropathy, without long-term current use of insulin (E11.42) Active confirmed Problem Type 2 diabetes mellitus with peripheral neuropathy (E11.42) Active confirmed Plan Of Treatment Pending Test Test Name Order Date Trim dystrophic toenails any number 04/27 Trim dystrophic toenails any number 07/28 Trim dystrophic toenails any number 11/26 Trim dystrophic toenails any number 02/24 Medical (General) History Medical History History ICD Code DM (diabetes mellitus), type 2 with neur ological complications Peripheral neuropathy Diabetes mellitus with cataract-Cataract nuclear sclerosis bilateral History of difficult colonoscopy Headache Coronary artery disease-Nono bstructive CAD in 2006 when presented with CHF. Nuclear stress test 12/31/12; cath 03/2014 showed 30% and 40% stenotic lesions in LAD, minimal luminal irregularities elsewhere. Cardiac cath 2018-nonobstructive CAD, EF 55% Major depressive disorder, recurrent Personal history of colonic polyps Hypertension Hypercholesteremia History of cardiomyopathy in adulthood Insomnia Obstructive sleep apnea hypopnea, severe AHI 94
== END 2025-05-26 10:57 | disposition home or self-care (01) ==
LOC: HO.HSM 09:47
PROVIDERS: PCP Internal Medicine; Visit Provider Psychiatry & Neurology Neurology
DX: G62.9 Polyneuropathy, unspecified (principal); I67.89 Other cerebrovascular disease; G47.33 Obstructive sleep apnea (adult) (pediatric)
CPT/HCPCS: 99213